=== PATIENT | female | born 1995 | race American Indian/Alaskan Native ===

== ENCOUNTER 2017-06-12 01:49 | Outpatient (CLI) | payer MEDICARE ==
[2017-06-12] MEDS ORDERED: LACTATED RINGERS 500 ML IV ONE (02:00)
[2017-06-12 02:42] VITALS: BP 120/82
[2017-06-12 03:02] LABS: Bilirubin,Urine NEG (Negative); Blood,Urine NEG (Negative); Ketones,Urine 20 mg/dL (Negative); Leukocyte Esterase,Urine TR (Negative); Mucus,Urine 3+ /HPF; Nitrite,Urine NEG (Negative)
== END 2017-06-12 04:39 | disposition home or self-care (01) ==
LOC: TRG 01:49
PROVIDERS: ATTEND Obstetrics & Gynecology Gynecology
DX: O47.03 False labor before 37 completed weeks of gestation, third trimester (principal); Z3A.35 35 weeks gestation of pregnancy
CPT/HCPCS: 81001; 96360; J7120

== ENCOUNTER 2021-06-20 11:28 | Emergency (ER) | payer MEDICARE ==
--- NOTE | 2021-06-20 12:20 | Emergency Department Report ---
ED Fall HPI - General Chief Complaint: Fall Stated Complaint: FALL/RT SHOULDER/LT SIDE PAIN Time Seen by Provider: 06/20/21 11:56 Source: patient, family Mode of arrival: Ambulatory Limitations: No Limitations - History of Present Illness Initial Comments: Patient is a 26-year-old female presents emergency room complaints of a fall that occurred 2 days ago. Patient states that she was sitting in a mino chair and she reached back to grab a pillow. She states that she then fell over in the chair. She states that her right arm got caught underneath her bed frame. She is complaining of right shoulder pain and left-sided rib pain. She denies hitting her head, loss of consciousness, vomiting, vision changes, numbness, weakness, bowel or bladder incontinence, any other injury. No past medical history. No allergies to medications. - Related Data Home Medications Medication Instructions Recorded Confirmed Last Taken FLUoxetine HCL [PROzac] 1 tab PO QDAY 06/12/17 06/12/17 06/11/17 Vit-Fe Fumar-FA [ 1 tab PO QDAY 06/12/17 06/12/17 06/11/17 Vitamin] valACYclovir [Valtrex] 500 mg PO BID 06/12/17 06/12/17 06/11/17 Previous Rx's Medication Instructions Recorded Last Taken Type Menthol/Camphor [[place] 1 applicatio TP BID #18 oint...g. 06/20/21 Unknown Rx Ointment] Naproxen 375 mg PO BID PRN #20 tablet 06/20/21 Unknown Rx Allergies Allergy/AdvReac Type Severity Reaction Status Date / Time No Known Allergies Allergy Verified 06/12/17 02:01 ED Review of Systems ROS: Stated complaint: FALL/RT SHOULDER/LT SIDE PAIN Other details as noted in HPI Comment: All other systems reviewed and negative ED Past Medical Hx - Past Medical History Hx Hypertension: No Hx Diabetes: No Hx Deep Vein Thrombosis: No Hx Renal Disease: No Hx Sickle Cell Disease: No Hx Seizures: No Hx Psychiatric Treatment: Yes (bipolar, depression, anxiety) Hx Asthma: No Hx HIV: No - Social History Smoking Status: Current Every Day Smoker Substance Use Type: Alcohol - Medications Home Medications: Home Medications Medication Instructions Recorded Confirmed Last Taken Type FLUoxetine HCL [PROzac] 1 tab PO QDAY 06/12/17 06/12/1717 History Vit-Fe Fumar-FA [ 1 tab PO QDAY 06/12/17 06/12/17 06/11/17 History Vitamin] valACYclovir [Valtrex] 500 mg PO BID 06/12/17 06/12/17 06/11/17 History Menthol/Camphor [[place] 1 applicatio TP BID #18 oint...g. 06/20/21 Unknown Rx Ointment] Naproxen 375 mg PO BID PRN #20 tablet 06/20/21 Unknown Rx ED Physical Exam - General Limitations: No Limitations General appearance: alert, in no apparent distress - Head Head exam: Present: atraumatic, normocephalic - Eye Eye exam: Present: normal appearance, EOMI. Absent: periorbital swelling, periorbital tenderness - ENT ENT exam: Present: mucous membranes moist - Neck Neck exam: Present: normal inspection, full ROM. Absent: tenderness, meningismus - Respiratory Respiratory exam: Present: normal lung sounds bilaterally, chest wall tenderness (mild left lateral rib ttp, no ecchymosis, no crepitus, no deformity ). Absent: respiratory distress, wheezes, rales, rhonchi, stridor, accessory muscle use, decreased breath sounds, prolonged expiratory - Cardiovascular Cardiovascular Exam: Present: regular rate, normal rhythm, normal heart sounds. Absent: systolic murmur, diastolic murmur, rubs, gallop - Extremities Exam Extremities exam: Present: other (ttp to the right posterior shoulder, no deformity, no ecchymosis, no edema, FROM of the RUE with discomfort on full flexion of the shoulder, no sulcus sign, clavicles are equal, no clavicular ttp, neurovascularly intact) - Neurological Exam Neurological exam: Present: alert, oriented X3, CN II-XII intact, normal gait. Absent: motor sensory deficit - Psychiatric Psychiatric exam: Present: normal affect, normal mood - Skin Skin exam: Present: warm, dry, intact ED Course Vital Signs 06/20/21 06/20/21 06/20/21 11:59 12:23 12:25 Temperature 97.8 F 97.3 F L Pulse Rate 82 81 Respiratory 20 12 Rate Blood Pressure 121/76 Blood Pressure 127/71 [Right] O2 Sat by Pulse 99 98 98 Oximetry ED Medical Decision Making - Radiology Data Radiology results: report reviewed Ordering Physician: AYSHA KOENIG Date of Service: 06/20/21 Procedure(s): XR shoulder 2+V RT Accession Number(s): [id number] cc: AYSHA KOENIG Fluoro Time In Minutes: XR shoulder 2+V RT INDICATION / CLINICAL INFORMATION: fall, right shoulder pain. COMPARISON: None available. FINDINGS: BONES/JOINT(S): No acute fracture or subluxation. No significant degenerative changes. SOFT TISSUES: No significant abnormality. ADDITIONAL FINDINGS: None. Signer Name: Uli Doyle MD Signed: 06/20/2021 1:12 PM Workstation Name: [id number] Transcribed By: DALILA Dictated By: Uli Doyle MD Electronically Authenticated By: Uli Doyle MD Signed Date/Time: 06/20/211311 DD/ 11 TD/TT: Ordering Physician: AYSHA KOENIG Date of Service: 06/20/21 Procedure(s): XR ribs UNI w PA chest 3+V LT Accession Number(s): [id number] cc: AYSHA KOENIG Fluoro Time In Minutes: LEFT RIBS 7 VIEWS INDICATION / CLINICAL INFORMATION: fall, left rib pain. COMPARISON: None available. FINDINGS: RIBS: No acute, displaced fracture or other acute abnormality. LUNGS: No acute findings. No pneumothorax. Signer Name: Uli Doyle MD Signed: 06/20/2021 1:14 PM Workstation Name: [id number] Transcribed By: DALILA Dictated By: Uli Doyle MD Electronically Authenticated By: Uli Doyle MD Signed Date/Time: 06/20/211313 DD/ 13 TD/TT: Print Cancel - Medical Decision Making Patient is a 26-year-old female presents emergency room complaints of a fall that occurred 2 days ago. Patient states that she was sitting in a mino chair and she reached back to grab a pillow. She states that she then fell over in the chair. She states that her right arm got caught underneath her bed frame. She is complaining of right shoulder pain and left-sided rib pain. She denies hitting her head, loss of consciousness, vomiting, vision changes, numbness, weakness, bowel or bladder incontinence, any other injury. No past medical history. No allergies to medications. Vitals are normal. On exam:mild left lateral rib ttp, no ecchymosis, no crepitus, no deformity, ttp to the right posterior shoulder, no deformity, no ecchymosis, no edema, FROM of the RUE with discomfort on full flexion of the shoulder, no sulcus sign, clavicles are equal, no clavicular ttp, neurovascularly intact. X-ray right shoulder: BONES/JOINT(S): No acute fracture or subluxation. No significant degenerative changes. SOFT TISSUES: No significant abnormality. ADDITIONAL FINDINGS: None. X-ray left ribs with chest: RIBS: No acute, displaced fracture or other acute abnormality. LUNGS: No acute findings. No pneumothorax. Discussed all results with patient answer questions. Patient given prescription for medication. Advised patient please use medication as prescribed as needed. may use ice pack, heating pad, rest, epsom salt bath. do not use tiger balm while using heat or ice. follow up with an orthopedic doctor if symptoms are not improving. follow up with a primary care doctor. return to the emergency room for any new or worsening symptoms. Critical care attestation.: If time is entered above; I have spent that time in minutes in the direct care of this critically ill patient, excluding procedure time. ED Disposition Clinical Impression: Rib pain on left side Right shoulder pain Qualifiers: Chronicity: acute Qualified Code(s): M25.511 - Pain in right shoulder Fall Qualifiers: Encounter type: initial encounter Qualified Code(s): W19.XXXA - Unspecified fall, initial encounter Disposition: HOME / SELF CARE / HOMELESS Is pt being admited?: No Does the pt Need Aspirin: No Condition: Stable Instructions: Musculoskeletal Pain Additional Instructions: please use medication as prescribed as needed. may use ice pack, heating pad, rest, epsom salt bath. do not use tiger balm while using heat or ice. follow up with an orthopedic doctor if symptoms are not improving. follow up with a primary care doctor. return to the emergency room for any new or worsening symptoms. Prescriptions: Naproxen 375 mg PO BID PRN #20 tablet PRN Reason: pain Menthol/Camphor [[place] Ointment] 1 applicatio TP BID #18 oint...g. Referrals: PRIMARY CAREMD [Primary Care Provider] - 3-5 Days GIORGI DUFFY MD [Staff Physician] - 3-5 Days [facility] [Provider Group] - 3-5 Days Forms: Work/School Release Form(ED) Time of Disposition: 13:29 Print Language: LAO
[2021-06-20 12:26] VITALS: BP 127/71
--- NOTE | 2021-06-20 13:17 | XRay Report ---
XR shoulder 2+V RT INDICATION / CLINICAL INFORMATION: fall, right shoulder pain. COMPARISON: None available. FINDINGS: BONES/JOINT(S): No acute fracture or subluxation. No significant degenerative changes. SOFT TISSUES: No significant abnormality. ADDITIONAL FINDINGS: None. Signer Name: Uli Doyle MD Signed: 06/20/2021 1:12 PM Workstation Name: [id number]
--- NOTE | 2021-06-20 13:18 | XRay Report ---
LEFT RIBS 7 VIEWS INDICATION / CLINICAL INFORMATION: fall, left rib pain. COMPARISON: None available. FINDINGS: RIBS: No acute, displaced fracture or other acute abnormality. LUNGS: No acute findings. No pneumothorax. Signer Name: Uli Doyle MD Signed: 06/20/2021 1:14 PM Workstation Name: [id number]
== END 2021-06-20 14:04 | disposition home or self-care (01) ==
LOC: ED 11:28
DX: M25.511 Pain in right shoulder (principal); R07.81 Pleurodynia; F10.20 Alcohol dependence, uncomplicated; F17.200 Nicotine dependence, unspecified, uncomplicated; W19.XXXA Unspecified fall, initial encounter; Y93.89 Activity, other specified; Y92.89 Other specified places as the place of occurrence of the external cause; Y99.8 Other external cause status
CPT/HCPCS: 99283

== ENCOUNTER 2021-09-19 13:57 | Emergency (ER) | payer OTHER ==
[2021-09-19 14:05] VITALS: BP 118/67
--- NOTE | 2021-09-19 14:34 | Emergency Department Report ---
ED General Adult HPI - General Chief complaint: High BP Stated complaint: HIGH BLOOD PRESSURE Time Seen by Provider: 09/19/21 14:33 Source: patient Mode of arrival: Ambulatory Limitations: No Limitations - History of Present Illness Initial comments: 26 yo who is in treatment for CAD/bipolar 2 and THC abuse is sent to ER for evaluation for her BP which is normal on exam. Pt states they are using a cuff that is too small and it is popping off. No symptoms. No chest pain. No sob -: Gradual, days(s) Severity scale (0 -10): 0 Worsens with: none Associated Symptoms: denies other symptoms Treatments Prior to Arrival: none - Related Data Home Medications Medication Instructions Recorded Confirmed Last Taken FLUoxetine HCL [PROzac] 1 tab PO QDAY 06/12/17 06/12/17 06/11/17 Vit-Fe Fumar-FA [ 1 tab PO QDAY 06/12/17 06/12/17 06/11/17 Vitamin] valACYclovir [Valtrex] 500 mg PO BID 06/12/17 06/12/17 06/11/17 Previous Rx's Medication Instructions Recorded Last Taken Type Menthol/Camphor [[place] 1 applicatio TP BID #18 oint...g. 06/20/21 Unknown Rx Ointment] Naproxen 375 mg PO BID PRN #20 tablet 06/20/21 Unknown Rx Allergies Allergy/AdvReac Type Severity Reaction Status Date / Time No Known Allergies Allergy Verified 09/19/21 14:01 ED Review of Systems ROS: Stated complaint: HIGH BLOOD PRESSURE Other details as noted in HPI Comment: All other systems reviewed and negative ED Past Medical Hx - Past Medical History Previous Medical History?: Yes Hx Hypertension: No Hx Diabetes: No Hx Deep Vein Thrombosis: No Hx Renal Disease: No Hx Sickle Cell Disease: No Hx Seizures: No Hx Psychiatric Treatment: Yes (bipolar, depression, anxiety) Hx Asthma: No Hx HIV: No Additional medical history: obese - Surgical History Past Surgical History?: No - Family History Family history: no significant - Social History Smoking Status: Current Every Day Smoker Substance Use Type: Alcohol, Marijuana - Medications Home Medications: Home Medications Medication Instructions Recorded Confirmed Last Taken Type FLUoxetine HCL [PROzac] 1 tab PO QDAY 06/12/17 06/12/17 06/11/17 History Vit-Fe Fumar-FA [ 1 tab PO QDAY 06/12/17 06/12/17 06/11/17 History Vitamin] valACYclovir [Valtrex] 500 mg PO BID 06/12/17 06/12/17 06/11/17 History Menthol/Camphor [[place] 1 applicatio TP BID #18 oint...g. 06/20/21 Unknown Rx Ointment] Naproxen 375 mg PO BID PRN #20 tablet 06/20/21 Unknown Rx ED Physical Exam - General Limitations: No Limitations General appearance: alert, in no apparent distress - Head Head exam: Present: atraumatic, normocephalic - Eye Eye exam: Present: normal appearance - ENT ENT exam: Present: mucous membranes moist - Neck Neck exam: Present: normal inspection - Respiratory Respiratory exam: Present: normal lung sounds bilaterally. Absent: respiratory distress - Cardiovascular Cardiovascular Exam: Present: regular rate, normal rhythm. Absent: systolic murmur, diastolic murmur, rubs, gallop - GI/Abdominal GI/Abdominal exam: Present: soft, normal bowel sounds - Extremities Exam Extremities exam: Present: normal inspection - Back Exam Back exam: Present: normal inspection - Neurological Exam Neurological exam: Present: alert, oriented X3 - Psychiatric Psychiatric exam: Present: normal affect, normal mood - Skin Skin exam: Present: warm, dry, intact, normal color. Absent: rash ED Course Vital Signs 09/19/21 14:02 Temperature 97.8 F Pulse Rate 91 H Respiratory 18 Rate Blood Pressure 118/67 [Right] O2 Sat by Pulse 100 Oximetry ED Medical Decision Making - Medical Decision Making Vital Signs 09/19/21 14:02 Temperature 97.8 F Pulse Rate 91 H Respiratory 18 Rate Blood Pressure 118/67 [Right] O2 Sat by Pulse 100 Oximetry bp noted long discussion with pt regarding bp in the setting of her rehab situation. She states she knows but they will not listen to her at rehab facility, pt has normal bp and no complaints dc home with dc plan of care including pcp follow up if she needs it. - Differential Diagnosis bp check Critical care attestation.: If time is entered above; I have spent that time in minutes in the direct care of this critically ill patient, excluding procedure time. ED Disposition Clinical Impression: Blood pressure check Disposition: 01 HOME / SELF CARE / HOMELESS Is pt being admited?: No Does the pt Need Aspirin: No Condition: Stable Additional Instructions: bp normal today using appropriate size cuff bp 118/67 follow up with pcp if needed referral below Referrals: BRITTON DUBON MD [Staff Physician] - 3-5 Days Time of Disposition: 14:35
== END 2021-09-19 15:55 | disposition home or self-care (01) ==
LOC: ED 13:57
DX: Z01.30 Encounter for examination of blood pressure without abnormal findings (principal); F31.9 Bipolar disorder, unspecified; F41.9 Anxiety disorder, unspecified; F17.200 Nicotine dependence, unspecified, uncomplicated; F12.90 Cannabis use, unspecified, uncomplicated; Z72.89 Other problems related to lifestyle; Z79.899 Other long term (current) drug therapy
CPT/HCPCS: 99282